=== PATIENT | male | born 1970 | race Caucasian/White ===

== ENCOUNTER 2022-03-16 20:26 | Emergency (ER) | payer BC ==
[~2022-03-16] VITALS: Ht 175.3 cm; Wt 94.3 kg
[2022-03-16 20:26] VITALS: BP 154/81
--- NOTE | 2022-03-16 20:26 | NUR ---
TO [facility]
[2022-03-16] MEDS ORDERED: NACL 0.9% 1,000 ML IV ONE (20:55)
[2022-03-16 21:20] LABS: BASOPHILS % (AUTO) 0.3 % (0.0-2.0); EOSINOPHILS % (AUTO) 0.1 % (0.0-4.0); HEMOGLOBIN 14.4 g/dL (12.0-18.0); LYMPHOCYTES # (AUTO) 1.6 K/uL (2.0-11.5); LYMPHOCYTES % (AUTO) 13.2 % (20.5-51.1); MEAN CORPUSCULAR HEMOGLOBIN 30 pg (27-31); MEAN CORPUSCULAR HGB CONC 34 g/dL (33-37); MEAN CORPUSCULAR VOLUME 86.4 fL (80-94); MONOCYTES # (AUTO) 0.4 K/uL (0.8-1.0); MONOCYTES % (AUTO) 3.6 % (1.7-9.3); NEUTROPHILS # (AUTO) 10.2 K/uL (1.8-7.7); NEUTROPHILS % (AUTO) 82.8 % (42.2-75.2); PLATELET COUNT (AUTO) 201 K/uL (140-450); RED BLOOD CELL COUNT(AUTO) 4.86 MIL/uL (4.20-6.10); RED CELL DISTRIBUTION WIDTH 13.9 % (11.6-13.7); WHITE BLOOD COUNT (AUTO) 12.3 K/uL (4.8-10.8)
--- NOTE | 2022-03-16 21:43 | NUR ---
Patient sitting in chair, A/Ox4, chest rise and fall symmetrical, no c/o pain or s/s of distress
[2022-03-16 21:57] LABS: ALBUMIN 4.2 g/dL (3.4-5.0); ANION GAP 14.5 (8-16); ASPARTATE AMINOTRANSFERASE 31 U/L (15-37); CARBON DIOXIDE 25.7 mmol/L (21-32); CHLORIDE 96 mmol/L (98-107); CREATININE 0.8 mg/dL (0.6-1.3); GFR ARICAN-AMERICAN 131 mL/min (>90); GLUCOSE 331 mg/dL (74-106); POTASSIUM 4.2 mmol/L (3.5-5.1); SODIUM SERUM 132 mmol/L (136-145); TOTAL BILIRUBIN 0.2 mg/dL (0.0-1.0); UREA NITROGEN, BLOOD 18 mg/dL (7-18)
--- NOTE | 2022-03-16 22:13 | NUR ---
Patient sitting in chair, A/Ox4, chest rise and fall symmetrical, no c/o pain or s/s of distress
[2022-03-16 22:38] VITALS: BP 138/74
--- NOTE | 2022-03-16 22:39 | NUR ---
Patient discharged with v/s stable. Written and verbal after care instructions given and explained. Patient verbalized understanding. Ambulatory with steady gait. All questions addressed prior to discharge. Advised to follow up with PMD.
== END 2022-03-16 22:39 | disposition home or self-care (01) ==
LOC: MED 20:26
DX: E86.0 Dehydration (principal); E72.51 Non-ketotic hyperglycinemia; I25.10 Atherosclerotic heart disease of native coronary artery without angina pectoris
CPT/HCPCS: 36415; 80053; 84484; 85025; 93005; 96360; 99284; J7030